=== PATIENT | female | born 1950 | race Caucasian/White ===

== ENCOUNTER 2017-10-23 14:22 | Inpatient (IN) | payer OTHER, MEDICAID, MEDICARE ==
[2017-10-23 22:48] VITALS: BP 167/75; PULSE 65; RESP 20; TEMP 97.3; O2SAT 93
[2017-10-23] MEDS: QUEtiapine FUMARATE 300 MG TAB PO SCH (23:00)
[2017-10-23] MEDS: ATORVASTATIN 20 MG TAB PO SCH (23:00)
[2017-10-24 04:48] VITALS: BP 150/90; PULSE 70; RESP 17; TEMP 98.2; O2SAT 96
--- NOTE | 2017-10-24 08:17 | PD.CONS ---
[facility] By Reason for Consult medical management Primary Care Physician No Primary Care Physician Diagnoses: History of Present Illness patient is a 67 y/o female with history of chronic low back pain, diabetes and anxiety who was recently admitted to the hospital because of acute encephalopathy and acute respiratory failure due to narcotics. she was placed on landin act and was transferred to the psych unit. she says that she didn't have any suicidal ideation and doesn't know ' why she was landin acted'. at the time of my evaluation she was in no acute distress, complaining of some back pain. she denies any chest pain or sob. Review of Systems Constitutional: DENIES: Fever, Weight loss, Chills, Night Sweats Eyes: DENIES: Blurred vision, Diplopia, Vision loss, Double Vision Ears, nose, mouth, throat: DENIES: Tinnitus, Vertigo, Throat pain, Epistaxis Respiratory: DENIES: Apneas, Cough, Snoring, Wheezing, Hemoptysis, Sputum production, Shortness of breath Cardiovascular: DENIES: Chest pain, Palpitations, Syncope, Dyspnea on Exertion , PND, Lower Extremity Edema, Orthopnea, Claudication Gastrointestinal: DENIES: Abdominal pain, Black stools, Bloody stools, Constipation, Diarrhea, Nausea, Vomiting, Difficulty Swallowing, Anorexia Genitourinary: DENIES: Urinary frequency, Urgency, Hematuria, Dysuria Musculoskeletal: COMPLAINS OF: Back pain, DENIES: Joint pain, Muscle aches, Stiffness, Joint Swelling Integumentary: DENIES: Rash Neurologic: DENIES: Abnormal gait, Headache, Localized weakness, Paresthesias, Seizures, Speech Problems, Tremor, Poor Balance Psychiatric: DENIES: Anxiety, Confusion, Mood changes, Depression, Hallucinations, Agitation, Suicidal Ideation, Homicidal Ideation, Delusions Past Family Social History Allergies: Coded Allergies: No Known Allergies (Verified Allergy, Unknown, 10/24/17) Past Medical History chronic low back pain/ diabetes mellitus/ anxiety. Past Surgical History cholecystectomy/ knee surgery/ Reported Medications prednisone/ albuterol/ Quetiapine/ sliding scale insulin Active Ordered Medications Inpatient Medications Atorvastatin Calcium (Lipitor) 20 mg HS PO ; Start 10/23/17 at 23:00 Duloxetine HCl (Cymbalta Dr) 60 mg DAILY PO ; Start 10/24/17 at 09:00 Quetiapine Fumarate (SEROquel) 600 mg HS PO ; Start 10/23/17 at 23:00 Rivaroxaban (Xarelto) 20 mg DAILY PO ; Start 10/24/17 at 09:00 Family History heart attack in father. Social History doesn't smoke.drinks occasionally. Physical Exam Vital Signs Vital Signs Date Time Temp Pulse Resp B/P (MAP) Pulse Ox O2 Delivery O2 Flow Rate FiO2 10/24/17 04:48 98.2 70 17 150/90 (110) 96 10/23/17 22:48 97.3 65 20 167/75 (105) 93 Physical Exam GENERAL: This is a well-nourished, well-developed patient, in no apparent distress. SKIN: No rashes, ecchymoses or lesions. Cool and dry. HEAD: Atraumatic. Normocephalic. No temporal or scalp tenderness. EYES: Pupils equal round and reactive. Extraocular motions intact. No scleral icterus. No injection or drainage. ENT: Nose without bleeding, purulent drainage or septal hematoma. Throat without erythema, tonsillar hypertrophy or exudate. Uvula midline. Airway patent. NECK: Trachea midline. No JVD or lymphadenopathy. Supple, nontender, no meningeal signs. CARDIOVASCULAR: Regular rate and rhythm without murmurs, gallops, or rubs. RESPIRATORY: Clear to auscultation. Breath sounds equal bilaterally. No wheezes , rales, or rhonchi. GASTROINTESTINAL: Abdomen soft, non-tender, nondistended. No hepato-splenomegaly , or palpable masses. No guarding. MUSCULOSKELETAL: Extremities without clubbing, cyanosis, or edema. No joint tenderness, effusion, or edema noted. No calf tenderness. Negative Homans sign bilaterally. NEUROLOGICAL: Awake and alert. Cranial nerves II through XII intact. Motor and sensory grossly within normal limits. Five out of 5 muscle strength in all muscle groups. Normal speech. Assessment and Plan Assessment and Plan A/P - recent admission due to the hospital because of acute encephalopathy/ acute respiratory failure; due to narcotics continue with neb treatment and oxygen as needed- continue with tapering dose of prednisone -narcotic overdose- on landin act; management per psych -diabetes mellitus; accu-check with SSI -consult PT thank you for the consult. Discussed Condition With the patient and RN. Dane Perez MD Oct 24, 2017 08:17
[2017-10-24] MEDS: DULoxetine HCl DR 60 MG CAP PO SCH (09:00)
[2017-10-24] MEDS: RIVAROXABAN 20 MG TAB PO SCH (09:00)
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
[2017-10-24] MEDS ORDERED: hydrOXYzine HCL 50 MG TAB PO PRN (12:00)
[2017-10-24] MEDS ORDERED: ATOR20TA15 PO (12:06)
[2017-10-24] MEDS ORDERED: ALLO100T PO ×2 (12:06→18:33)
[2017-10-24] MEDS ORDERED: ALBUAER3 INH ×2 (12:06→18:33)
[2017-10-24] MEDS ORDERED: DEXTROSE 50% IN WATER 50 ML VIAL(D50) IV PUSH PRN (12:15)
[2017-10-24] MEDS ORDERED: GLUCAGON 1 MG/ML VIAL OTHER PRN (12:15)
[2017-10-24] MEDS ORDERED: ACETAMINOPHEN 325 MG TAB PO PRN (12:15)
[2017-10-24] MEDS ORDERED: RESP: ALBUTEROL 2.5 MG/IPRATROPIUM 0.5 MG NEB (PRN) NEB (12:15)
[2017-10-24] MEDS ORDERED: PILL SPLITTER OTHER PRN (12:30)
[2017-10-24] MEDS: predniSONE 20 MG TAB PO SCH (14:00)
[2017-10-24] MEDS: INSULIN ASPART SUPPLEMENTAL SCALE SQ SCH ×2 (16:59→20:43)
[2017-10-24 18:33] VITALS: BP 162/87; PULSE 66; RESP 16; TEMP 98.5; O2SAT 95
[2017-10-24] MEDS ORDERED: AMIT8CAP6 PO (18:33)
[2017-10-24] MEDS ORDERED: ESCI20TA PO (18:33)
[2017-10-24] MEDS ORDERED: BUSP15TA PO (18:33)
[2017-10-24] MEDS ORDERED: XARE20TA PO (18:33)
[2017-10-24] MEDS ORDERED: LYRI100C PO (18:33)
[2017-10-24] MEDS ORDERED: TIZA4TAB PO (18:33)
[2017-10-24] MEDS ORDERED: SYMB80AE INH (18:33)
[2017-10-24] MEDS ORDERED: TRAZ100T10 PO (18:33)
[2017-10-24] MEDS ORDERED: OXYC1TAB36 (18:33)
[2017-10-24] MEDS ORDERED: MELO15TA20 PO (18:33)
[2017-10-24] MEDS ORDERED: MORP1TAB24 PO (18:33)
[2017-10-24] MEDS ORDERED: DICY10CA12 PO (18:33)
[2017-10-24] MEDS ORDERED: FENO160T PO (18:33)
[2017-10-24] MEDS ORDERED: DULO1CAP3 PO (18:33)
[2017-10-24] MEDS ORDERED: BENZ1CAP54 PO (18:33)
[2017-10-24] MEDS ORDERED: LOSA50TA PO (18:33)
[2017-10-24 19:29] VITALS: BP 156/88; PULSE 56; RESP 17; O2SAT 94
[2017-10-24 20:30] VITALS: BP 175/92; PULSE 66; RESP 17; TEMP 98.4; O2SAT 94
--- NOTE | 2017-10-24 20:39 | RADRPT ---
EXAM DATE/TIME: 10/24/2017 20:28 [facility] COMPARISON: No previous studies available for comparison. INDICATIONS : Status post fall. RADIATION DOSE: 56.35 CTDIvol (mGy) MEDICAL HISTORY : Diabetes mellitus type 1. Cardiovascular disease SURGICAL HISTORY : Cholecystectomy. ENCOUNTER: Initial ACUITY: 1 day PAIN SCALE: 5/10 LOCATION: cranial TECHNIQUE: Multiple contiguous axial images were obtained of the head. Using automated exposure control and adj ustment of the mA and/or kV according to patient size, radiation dose was kept as low as reasonably a chievable to obtain optimal diagnostic quality images. DICOM format image data is available electro nically for review and comparison. FINDINGS: CEREBRUM: The ventricles are normal for age. No evidence of midline shift, mass lesion, hemorrhage or acute in farction. No extra-axial fluid collections are seen. POSTERIOR FOSSA: The cerebellum and brainstem are intact. The 4th ventricle is midline. The cerebellopontine angle i s unremarkable. EXTRACRANIAL: The visualized portion of the orbits is intact. Mucosal thickening involving the left frontal and rachel ateral posterior ethmoid sinuses SKULL: The calvaria is intact. No evidence of skull fracture. CONCLUSION: 1. No acute intracranial abnormality. 2. Mucosal thickening involving the left frontal and bilateral posterior ethmoid sinuses. Jc Bledsoe MD on October 24, 2017 at 20:35 Board Certified Radiologist. This report was verified electronically.
[2017-10-24] MEDS: traZODone HCL 50 MG TAB PO PRN (20:46)
[2017-10-24] MEDS: ATORVASTATIN 20 MG TAB PO SCH (20:47)
[2017-10-24] MEDS: QUEtiapine FUMARATE 300 MG TAB PO SCH (20:47)
[2017-10-24] MEDS: PREGABALIN 100 MG CAP PO SCH (20:58)
[2017-10-24] MEDS: LOSARTAN 50 MG TAB PO SCH (20:58)
[2017-10-24] MEDS: BUDESONIDE-FORMOTEROL 80/4.5 MCG INHALER INH SCH (20:58)
[2017-10-24 21:30] VITALS: BP 124/70; PULSE 72; RESP 17; TEMP 97.9; O2SAT 92
[2017-10-24 22:30] VITALS: BP 120/80; PULSE 74; RESP 16; TEMP 98.2; O2SAT 93
[2017-10-24] MEDS: ACETAMINOPHEN/HYDROcodone 325 MG/10 MG TAB PO PRN (22:51)
[2017-10-25] MEDS: PREGABALIN 100 MG CAP PO SCH ×3 (05:39→20:28)
[2017-10-25 06:00] VITALS: BP 148/86; PULSE 68; RESP 17; TEMP 97.7; O2SAT 92
[2017-10-25] MEDS: INSULIN ASPART SUPPLEMENTAL SCALE SQ SCH ×4 (08:00→20:26)
[2017-10-25] MEDS: DULoxetine HCl DR 60 MG CAP PO SCH (09:07)
[2017-10-25] MEDS: predniSONE 20 MG TAB PO SCH (09:07)
[2017-10-25] MEDS: RIVAROXABAN 20 MG TAB PO SCH (09:08)
[2017-10-25] MEDS: LOSARTAN 50 MG TAB PO SCH (09:08)
[2017-10-25] MEDS: BUDESONIDE-FORMOTEROL 80/4.5 MCG INHALER INH SCH ×2 (09:10→20:26)
--- NOTE | 2017-10-25 09:10 | HHI.PR ---
Subjective Remarks reportedly had a fall last night when she was walking with her walker. had mild headache earlier which has resolved. denies any other pain at this time. Objective Vitals Vital Signs Date Time Temp Pulse Resp B/P (MAP) Pulse Ox O2 Delivery O2 Flow Rate FiO2 10/25/17 06:00 97.7 68 17 148/86 (106) 92 10/24/17 22:30 98.2 74 16 120/80 (93) 93 10/24/17 21:30 97.9 72 17 124/70 (88) 92 10/24/17 20:30 98.4 66 17 175/92 (119) 94 10/24/17 19:29 56 17 156/88 (110) 94 10/24/17 18:33 98.5 66 16 162/87 (112) 95 I/O 10/24/17 10/24/17 10/24/17 10/25/17 10/25/17 10/25/17 07:00 15:00 23:00 07:00 15:00 23:00 Intake Total 720 ml 840 ml 360 ml 120 ml Balance 720 ml 840 ml 360 ml 120 ml Intake Oral 720 ml 840 ml 360 ml 120 ml # Voids 1 Imaging Last Impressions Head CT 10/24/17 0000 Signed Impressions: Service Date/Time: Tuesday, October 24, 2017 20:28 - CONCLUSION: 1. No acute intracranial abnormality. 2. Mucosal thickening involving the left frontal and bilateral posterior ethmoid sinuses. Jc Bledsoe MD Objective Remarks GENERAL: This is a well-nourished, well-developed patient, in no apparent distress. CARDIOVASCULAR: Regular rate and regular rhythm without murmurs, gallops, or rubs. RESPIRATORY: Clear to auscultation. Breath sounds equal bilaterally. No wheezes , rales, or rhonchi. GASTROINTESTINAL: Abdomen soft, non-tender, nondistended. Normal, active bowel sounds MUSCULOSKELETAL: Extremities without clubbing, cyanosis, or edema. NEURO: Alert & Oriented x4 to person, place, time, situation. Moves all ext x4 Medications and IVs Inpatient Medications Acetaminophen (Tylenol) 650 mg Q4H PRN PO FEVER/PAIN 1-3 Last administered on at 16:59; Start 10/24/17 at 12:15 Acetaminophen/ Hydrocodone Bitart ([place] 10-325 Mg) 1 tab Q4H PRN PO PAIN 4-10 Last administered on 10/24/17at 22:51; Start 10/24/17 at 18:45 Albuterol/ Ipratropium (Duoneb Neb) 1 ampule Q6HR NEB PRN NEB SHORTNESS OF BREATH; Start 10/24/17 at 12:15 Atorvastatin Calcium (Lipitor) 20 mg HS PO Last administered on 10/24/17at 20:47 ; Start 10/23/17 at 23:00 Budesonide/ Formoterol Fumarate (Symbicort 80-4.5 Mcg Inh) 2 puff Q12HR INH Last administered on 10/24/17at 20:58; Start 10/24/17 at 21:00 Dextrose (D50w (Vial) Inj) 50 ml UNSCH PRN IV PUSH HYPOGLYCEMIA-SEE COMMENTS; Start 10/24/17 at 12:15 Duloxetine HCl (Cymbalta Dr) 60 mg DAILY PO Last administered on 10/24/17at 09:00 ; Start 10/24/17 at 09:00 Glucagon (Glucagon Inj) 1 mg UNSCH PRN OTHER HYPOGLYCEMIA-SEE COMMENTS; Start 10/24/17 at 12:15 Hydroxyzine HCl (Atarax) 50 mg Q6H PRN PO MOD - SEVERE ANXIETY/AGITATION Last administered on 10/24/17at 20:47; Start 10/24/17 at 12:00 Insulin Aspart (NovoLOG SUPPLEMENTAL SCALE) 1 ACHS SLIDING SCALE SQ ; Start 10/24/17 at 17:00 Losartan Potassium (Cozaar) 50 mg DAILY PO Last administered on 10/24/17at 20:58 ; Start 10/24/17 at 19:00 Miscellaneous (Pill Splitter) 1 ea UNSCH PRN OTHER SEE LABEL COMMENTS; Start at 12:30 Prednisone (Deltasone) 30 mg DAILY PO Last administered on 10/24/17at 14:00; Start 10/24/17 at 14:00 Pregabalin (Lyrica) 100 mg Q8HR PO Last administered on 10/25/17at 05:39; Start 10/24/17 at 22:00 Quetiapine Fumarate (SEROquel) 600 mg HS PO Last administered on 10/24/17at 20:47 ; Start 10/23/17 at 23:00 Rivaroxaban (Xarelto) 20 mg DAILY PO Last administered on 10/24/17at 09:00; Start 10/24/17 at 09:00 Trazodone HCl (Desyrel) 50 mg HS PRN PO INSOMNIA Last administered on 10/24/17at 20:46; Start 10/24/17 at 12:00 A/P Assessment and Plan - recent admission due to the hospital because of acute encephalopathy/ acute respiratory failure; due to narcotics continue with neb treatment and oxygen as needed- continue with tapering dose of prednisone -narcotic overdose- on landin act; management per psych -fall; CT of the head with no acute abnormality; PT consult appreciated- fall precautions. -diabetes mellitus; accu-check with SSI -hypertension; continue Losartan. Dane Perez MD Oct 25, 2017 09:10
--- NOTE | 2017-10-25 11:06 | HHI.PYPN ---
Subjective Remarks Patient was seen today for psychiatric reevaluation. The case was discussed with nurse in charge. Documentation reviewed. On psychiatric evaluation the patient is calm, cooperative, pleasant. The patient reports that she feels much better. He says that she has learned a lesson for the rest of her life. Patient clarifies that she did not try to commit suicide by overdosing. Says that she overdosed by mistake "because I really needed the medication for the pain". At this moment the patient says that she really understand the benefit of the hospitalization and counseling. She has been taking her medications every day, nose anything and side effects. No agitation, not aggressive behavior reported. Patient requested to be placed on Lasix 40 mg, medication that she has been taking for a long time for leg swelling and high blood pressure. Mental Status Examination Appearance: Disheveled Consciousness: Alert Orientation: x4 Motor Activity: Normal gait Speech: Unremarkable Language: Adequate Fund of Knowledge: Inadequate Attention and Concentration: Adequate Memory: Unremarkable Mood: Appropriate Affect: Appropriate, Other (tearful when talking about her daughter) Thought Process & Associations: Linear Thought Content: Appropriate Hallucination Type: None Delusion Type: None Suicidal Ideation: No Suicidal Plan: No Suicidal Intention: No Homicidal Ideation: No Homicidal Plan: No Homicidal Intention: No Insight: Fair Judgment: Impulsive Results Vitals/IOs Vital Signs Date Time Temp Pulse Resp B/P (MAP) Pulse Ox O2 Delivery O2 Flow Rate FiO2 10/25/17 06:00 97.7 68 17 148/86 (106) 92 Intake and Output 10/25/17 10/25/17 10/26/17 08:00 16:00 00:00 Intake Total 360 ml 120 ml Balance 360 ml 120 ml Assessment & Plan Problem List: (1) Adjustment disorder with depressed mood ICD Codes: F43.21 - Adjustment disorder with depressed mood Assessment & Plan: Patient shows good mood today. Denies suicidal and homicidal ideation, denies visual and auditory hallucinations. She is oriented 3. Compliant with medications. Her current psychotropics. Order Lasix 40 mg for high blood pressure and lower leg edema (2) Opioid dependence with current use ICD Codes: F11.20 - Opioid dependence, uncomplicated Assessment & Plan Estimated LOS: days Justification for Cont. Inpt. Patient is in an elevator risk of decompensating at a lower level of care. Raúl Clements MD Oct 25, 2017 11:06
[2017-10-25] MEDS: FUROSEMIDE 40 MG TAB PO SCH (12:39)
[2017-10-25] MEDS: ACETAMINOPHEN/HYDROcodone 325 MG/10 MG TAB PO PRN ×2 (15:01→20:27)
[2017-10-25 18:38] VITALS: BP 160/90; PULSE 70; RESP 18; TEMP 98.3; O2SAT 93
[2017-10-25] MEDS: QUEtiapine FUMARATE 300 MG TAB PO SCH (20:28)
[2017-10-25] MEDS: ATORVASTATIN 20 MG TAB PO SCH (20:28)
[2017-10-26] MEDS: PREGABALIN 100 MG CAP PO SCH ×3 (05:12→21:08)
[2017-10-26 06:15] VITALS: BP 126/83; PULSE 70; RESP 20; TEMP 98.1; O2SAT 95
[2017-10-26] MEDS: INSULIN ASPART SUPPLEMENTAL SCALE SQ SCH ×4 (07:56→21:26)
--- NOTE | 2017-10-26 09:12 | HHI.PR ---
Subjective Remarks in no acute distress. looks and feels better today. no new complaints. Objective Vitals Vital Signs Date Time Temp Pulse Resp B/P (MAP) Pulse Ox O2 Delivery O2 Flow Rate FiO2 10/26/17 06:15 98.1 70 20 126/83 (97) 95 10/25/17 20:13 Nasal Cannula 2.00 10/25/17 18:38 98.3 70 18 160/90 (113) 93 10/25/17 10:45 2.00 I/O 10/25/17 10/25/17 10/25/17 10/26/17 10/26/17 10/26/17 07:00 15:00 23:00 07:00 15:00 23:00 Intake Total 360 ml 720 ml 1200 ml 360 ml 360 ml Balance 360 ml 720 ml 1200 ml 360 ml 360 ml Intake Oral 360 ml 720 ml 1200 ml 360 ml 360 ml # Voids 1 3 4 4 # Bowel Movements 1 2 2 Imaging Last Impressions Head CT 10/24/17 0000 Signed Impressions: Service Date/Time: Tuesday, October 24, 2017 20:28 - CONCLUSION: 1. No acute intracranial abnormality. 2. Mucosal thickening involving the left frontal and bilateral posterior ethmoid sinuses. Jc Bledsoe MD Objective Remarks GENERAL: This is a well-nourished, well-developed patient, in no apparent distress. CARDIOVASCULAR: Regular rate and regular rhythm without murmurs, gallops, or rubs. RESPIRATORY: Clear to auscultation. Breath sounds equal bilaterally. No wheezes , rales, or rhonchi. GASTROINTESTINAL: Abdomen soft, non-tender, nondistended. Normal, active bowel sounds MUSCULOSKELETAL: Extremities without clubbing, cyanosis, or edema. NEURO: Alert & Oriented x4 to person, place, time, situation. Moves all ext x4 Medications and IVs Inpatient Medications Acetaminophen (Tylenol) 650 mg Q4H PRN PO FEVER/PAIN 1-3 Last administered on at 16:59; Start 10/24/17 at 12:15 Acetaminophen/ Hydrocodone Bitart ([place] 10-325 Mg) 1 tab Q4H PRN PO PAIN 4-10 Last administered on 10/25/17at 20:27; Start 10/24/17 at 18:45 Albuterol/ Ipratropium (Duoneb Neb) 1 ampule Q6HR NEB PRN NEB SHORTNESS OF BREATH; Start 10/24/17 at 12:15 Atorvastatin Calcium (Lipitor) 20 mg HS PO Last administered on 10/25/17 20:28 ; Start 10/23/17 at 23:00 Budesonide/ Formoterol Fumarate (Symbicort 80-4.5 Mcg Inh) 2 puff Q12HR INH Last administered on 10/25/17 20:26; Start 10/24/17 at 21:00 Dextrose (D50w (Vial) Inj) 50 ml UNSCH PRN IV PUSH HYPOGLYCEMIA-SEE COMMENTS; Start 10/24/17 at 12:15 Duloxetine HCl (Cymbalta Dr) 60 mg DAILY PO Last administered on 10/25/17 09:07 ; Start 10/24/17 at 09:00 Furosemide (Lasix) 40 mg DAILY PO Last administered on 10/25/17at 12:39; Start at 11:15 Glucagon (Glucagon Inj) 1 mg UNSCH PRN OTHER HYPOGLYCEMIA-SEE COMMENTS; Start 10/24/17 at 12:15 Hydroxyzine HCl (Atarax) 50 mg Q6H PRN PO MOD - SEVERE ANXIETY/AGITATION Last administered on 10/24/17at 20:47; Start 10/24/17 at 12:00 Insulin Aspart (NovoLOG SUPPLEMENTAL SCALE) 1 ACHS SLIDING SCALE SQ Last administered on 10/25/17 20:26; Start 10/24/17 at 17:00 Losartan Potassium (Cozaar) 50 mg DAILY PO Last administered on 10/25/17 09:08 ; Start 10/24/17 at 19:00 Miscellaneous (Pill Splitter) 1 ea UNSCH PRN OTHER SEE LABEL COMMENTS; Start at 12:30 Prednisone (Deltasone) 30 mg DAILY PO Last administered on 10/25/17 09:07; Start 10/24/17 at 14:00 Pregabalin (Lyrica) 100 mg Q8HR PO Last administered on 10/26/17 05:12; Start 10/24/17 at 22:00 Quetiapine Fumarate (SEROquel) 600 mg HS PO Last administered on 10/25/17 20:28 ; Start 10/23/17 at 23:00 Rivaroxaban (Xarelto) 20 mg DAILY PO Last administered on 10/25/17at 09:08; Start 10/24/17 at 09:00 Trazodone HCl (Desyrel) 50 mg HS PRN PO INSOMNIA Last administered on 10/24/17at 20:46; Start 10/24/17 at 12:00 A/P Assessment and Plan A/P - recent admission due to the hospital because of acute encephalopathy/ acute respiratory failure; due to narcotics continue with neb treatment and oxygen as needed- continue with symbicort and prednisone; will taper down the dose today. -narcotic overdose- on landin act; management per psych -fall; CT of the head with no acute abnormality; PT consult appreciated- fall precautions. -diabetes mellitus; accu-check with SSI -hypertension; continue Losartan. -history of PE; on Xarelto. Dane Perez MD Oct 26, 2017 09:12
[2017-10-26] MEDS: FUROSEMIDE 40 MG TAB PO SCH (09:28)
[2017-10-26] MEDS: RIVAROXABAN 20 MG TAB PO SCH (09:28)
[2017-10-26] MEDS: predniSONE 20 MG TAB PO SCH (09:28)
[2017-10-26] MEDS: LOSARTAN 50 MG TAB PO SCH (09:28)
[2017-10-26] MEDS: DULoxetine HCl DR 60 MG CAP PO SCH (09:28)
[2017-10-26] MEDS: BUDESONIDE-FORMOTEROL 80/4.5 MCG INHALER INH SCH ×2 (09:30→21:07)
--- NOTE | 2017-10-26 10:28 | HHI.PYPN ---
Subjective Remarks The patient was seen today for psychiatric reevaluation along with nurse in charge Joaquín, on psychiatric evaluation today the patient is calm, cooperative , pleasant. The patient clarifies that she is much improved. She reports good mood, denies depressive symptoms, denies anhedonia, denies anxiety, denies suicidal and homicidal ideation, she denies visual and auditory hallucinations. Today we spoke about her poor and tumultuous relationship with her kids, which has been a source of anxiety and depression for her in the past. Patient is future oriented, she was able to share goals. She has been compliant medications, no significant side effects. Vital signs and labs were reviewed. Mental Status Examination Appearance: Disheveled Consciousness: Alert Orientation: x4 Motor Activity: Normal gait Speech: Unremarkable Language: Adequate Fund of Knowledge: Inadequate Attention and Concentration: Adequate Memory: Unremarkable Mood: Appropriate Affect: Appropriate, Other (tearful when talking about her daughter) Thought Process & Associations: Linear Thought Content: Appropriate Hallucination Type: None Delusion Type: None Suicidal Ideation: No Suicidal Plan: No Suicidal Intention: No Homicidal Ideation: No Homicidal Plan: No Homicidal Intention: No Insight: Fair Judgment: Impulsive Results Vitals/IOs Vital Signs Date Time Temp Pulse Resp B/P (MAP) Pulse Ox O2 Delivery O2 Flow Rate FiO2 10/26/17 06:15 98.1 70 20 126/83 (97) 95 10/25/17 20:13 Nasal Cannula 2.00 Intake and Output 10/26/17 10/26/17 10/27/17 08:00 16:00 00:00 Intake Total 360 ml 360 ml Balance 360 ml 360 ml Assessment & Plan Problem List: (1) Adjustment disorder with depressed mood ICD Codes: F43.21 - Adjustment disorder with depressed mood Assessment & Plan: Brief supportive psychotherapy, psychoeducation and motivation provided. Continue current psychotropic. (2) Opioid dependence with current use ICD Codes: F11.20 - Opioid dependence, uncomplicated Assessment & Plan Estimated LOS: days Justification for Cont. Inpt. Patient has an elevated risk to decompensate at a lower level of care. Raúl Clements MD Oct 26, 2017 10:28
[2017-10-26 18:19] VITALS: BP 177/89; PULSE 62; RESP 16; TEMP 98.1; O2SAT 93
[2017-10-26] MEDS: ATORVASTATIN 20 MG TAB PO SCH (21:08)
[2017-10-26] MEDS: ACETAMINOPHEN/HYDROcodone 325 MG/10 MG TAB PO PRN (21:08)
[2017-10-26] MEDS: QUEtiapine FUMARATE 300 MG TAB PO SCH (21:08)
[2017-10-27] MEDS: traZODone HCL 50 MG TAB PO PRN (00:27)
[2017-10-27] MEDS: PREGABALIN 100 MG CAP PO SCH ×2 (04:50→14:00)
[2017-10-27 05:15] VITALS: BP 138/77; PULSE 68; RESP 20; TEMP 97.1; O2SAT 93
[2017-10-27 06:29] LABS: BICARBONATE 35.7 MEQ/L (21.0-32.0); CREATININE 0.82 MG/DL (0.50-1.00)
[2017-10-27] MEDS: INSULIN ASPART SUPPLEMENTAL SCALE SQ SCH ×3 (08:00→17:00)
[2017-10-27] MEDS: BUDESONIDE-FORMOTEROL 80/4.5 MCG INHALER INH SCH (09:00)
[2017-10-27] MEDS ORDERED: predniSONE 20 MG TAB PO SCH (09:00)
[2017-10-27] MEDS ORDERED: POTASSIUM CHLORIDE 10 MEQ CONTROLLED RELEASE TAB PO ONE (09:15)
--- NOTE | 2017-10-27 09:58 | HHI.PR ---
Subjective Remarks Patient says she is feeling well. Denies any chest pain or shortness of breath. Denies any nausea or vomiting. Objective Vital Signs Date Time Temp Pulse Resp B/P (MAP) Pulse Ox O2 Delivery O2 Flow Rate FiO2 10/27/17 05:15 97.1 68 20 138/77 (97) 93 10/26/17 20:17 Nasal Cannula 2.00 10/26/17 18:19 98.1 62 16 177/89 (118) 93 10/26/17 13:40 Nasal Cannula 2.00 I/O 10/26/17 10/26/17 10/26/17 10/27/17 10/27/17 10/27/17 07:00 15:00 23:00 07:00 15:00 23:00 Intake Total 360 ml 480 ml 1960 ml 240 ml Output Total 3 ml Balance 360 ml 480 ml 1957 ml 240 ml Intake Oral 360 ml 480 ml 1460 ml 240 ml Oral Supplement 500 ml Output Urine Total 3 ml # Voids 4 # Bowel Movements 2 0 Result Diagram: 10/27/17 0517 Objective Remarks GENERAL: He shouldn't walking in sanchez. Appears comfortable. SKIN: Warm and dry. HEAD: Normocephalic. EYES: No scleral icterus. No injection or drainage. NECK: Supple, trachea midline. No JVD. CARDIOVASCULAR: Regular rate and rhythm without murmurs, gallops, or rubs. RESPIRATORY: Breath sounds equal bilaterally. No accessory muscle use. GASTROINTESTINAL: Abdomen soft, non-tender, nondistended. MUSCULOSKELETAL: No cyanosis. Trace peripheral edema. No erythema. BACK: Nontender without obvious deformity. No CVA tenderness. A/P Assessment and Plan // recent admission due to the hospital because of acute encephalopathy/ acute respiratory failure; due to narcotics continue with neb treatment and oxygen as needed- continue with symbicort and prednisone; will taper down the dose today. //narcotic overdose- on landin act; management per psych //fall; CT of the head with no acute abnormality; PT consult appreciated- fall precautions. //diabetes mellitus; accu-check with SSI //hypertension; continue Losartan. -Continue Lasix. //Hypokalemia. = 2. Potassium 3.0. Replaced. Check magnesium. Monitor tomorrow. //history of PE; on Xarelto. Requests family medicine records from [facility] in [facility]. Appreciate nursing assistance. Discharge Planning We will continue to follow Tom Cruz MD Oct 27, 2017 09:58
[2017-10-27] MEDS: DULoxetine HCl DR 60 MG CAP PO SCH (10:40)
[2017-10-27] MEDS: LOSARTAN 50 MG TAB PO SCH (10:41)
[2017-10-27] MEDS: FUROSEMIDE 40 MG TAB PO SCH (10:41)
[2017-10-27] MEDS: RIVAROXABAN 20 MG TAB PO SCH (10:41)
[2017-10-27] MEDS ORDERED: QUET1TAB10 PO (11:10)
[2017-10-27] MEDS ORDERED: DULO1CAP3 PO (11:10)
[2017-10-27] MEDS ORDERED: VENTAER INH (13:02)
[2017-10-27] MEDS ORDERED: PRED10 PO (13:02)
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
[2017-10-27 18:00] VITALS: BP 144/75; PULSE 82; RESP 16; TEMP 98.1; O2SAT 92
== END 2017-10-27 18:53 | disposition home or self-care (01) | DRG 881 ==
LOC: UNDOADMIN 16:17 → H4EA 16:17
PROVIDERS: ADMIT Student in an Organized Health Care Education/Training Program; ATTEND Student in an Organized Health Care Education/Training Program
DX: F43.21 Adjustment disorder with depressed mood (principal); F11.20 Opioid dependence, uncomplicated; Z99.81 Dependence on supplemental oxygen; I10 Essential (primary) hypertension; E11.9 Type 2 diabetes mellitus without complications; M54.5 Low back pain; G89.29 Other chronic pain; Z91.81 History of falling; E87.6 Hypokalemia; Z79.02 Long term (current) use of antithrombotics/antiplatelets; Z86.711 Personal history of pulmonary embolism
CPT/HCPCS: 70450; 80048; 82948; 83735; J1815; J7512